=== PATIENT | male | born 1980 | race Caucasian/White ===

== ENCOUNTER → 2023-09-09 11:50 | Outpatient (REF) | payer BC, SELFPAY | LOC: HWRAD 11:50 | PROVIDERS: ATTENDING PHYSICIAN Physician Assistant; FAMILY PHYSICIAN Family Medicine | DX: G43.109 Migraine with aura, not intractable, without status migrainosus (principal); G44.52 New daily persistent headache (NDPH); R10.30 Lower abdominal pain, unspecified; R19.7 Diarrhea, unspecified; K92.1 Melena | CPT/HCPCS: 70450; 74177; Q9967 ==

== ENCOUNTER 2023-10-13 15:06 | Emergency (ER) | payer BC, SELFPAY ==
[2023-10-13 15:11] VITALS: BP 149/96
[2023-10-13 15:55] LABS: % Basophils 0.9 % (0-2); % Eosinophils 0.7 % (0-6); % Immature Granulocytes 0.4 % (0-0.5); % Lymphocytes 32.3 % (20.5-51.1); % Monocytes 10.2 % (1.7-9.3); % Neutrophils 55.5 % (42.2-75.2); Absolute Basophils 0.1 10^3/uL (0-0.2); Absolute Lymphocytes 1.8 10^3/uL (1.2-3.4); Absolute Monocytes 0.6 10^3/uL (0.1-0.6); Absolute Neutrophils 3.1 10^3/uL (1.4-6.5); Hematocrit 48.2 % (39.0-52.0); Hemoglobin 16.6 g/dL (13.0-18.0); Mean Corp Hgb Conc. 34.4 g/dL (33.0-37.0); Mean Corpuscular Hgb 29.6 pg (27.0-31.0); Mean Corpuscular Volume 85.9 fL (80.0-94.0); Mean Platelet Volume 9.4 fL (7.4-10.4); Nucleated Red Blood Cells % 0 % (-); Platelet Count 238 10^3/uL (130-400); Red Blood Cell Count 5.61 10^6/uL (4.70-6.10); White Blood Cell Count 5.6 10^3/uL (4.8-10.8)
[2023-10-13 16:07] LABS: Albumin 4.8 g/dl (3.5-5.0); Carbon Dioxide 29 mmol/L (22-30)
[2023-10-13 16:08] LABS: ALT (SGPT) 43 U/L (0-50); AST (SGOT) 32 U/L (17-59); Alkaline Phosphatase 118 U/L (38-126); Blood Urea Nitrogen 12 mg/dl (9-20); Chloride 103 mmol/L (98-107); Glucose 90 mg/dl (70-99); Potassium 4.4 mmol/L (3.5-5.1); Sodium 140 mmol/L (135-145); Total Bilirubin 1.1 mg/dl (0.2-1.3); Total Protein 7.8 g/dl (6.3-8.2); eGFR > 60.00
[2023-10-13 16:20] LABS: Troponin I < 0.012 ng/ml
[2023-10-13 17:54] VITALS: BP 120/75
[2023-10-13 18:00] VITALS: BP 119/85
--- NOTE | 2023-10-13 18:30 | ED.GENMED ---
History of Present Illness
General
Chief Complaint: Chest Pain
Source: patient
Exam Limitations: none
Time Seen by Provider: 10/13/23 18:09
Travel History
Have you had any contact with someone who has COVID-19?: No
Do you have any symptoms of coronavirus? Fever > 100 degrees, chills, cough, shortness of breath, sore throat, loss of taste or smell, muscle aches, or headache?: No
History of Present Illness
History of Present Illness:
43-year-old otherwise healthy male presents complaining of 2 days worth of pressure in the center of his chest that is made worse with deep breathing. Does not radiate to his back. He denies associated fever or cough. He states he does have a
history of pneumonia that feels similar. He feels fatigued overall. No nausea vomiting. He does travel back and forth to [place] semiregularly. No leg swelling or calf pain. No other complaints at this time
Past History
Past History
ED Past Medical History: Other (kidney stones, migraines, kidney stones)
ED Past Surgical History: Other (urology)
Social History
Tobacco: Non-smoker
Personal:
Living: with family
Phy Exam
Physical Exam
Physical Exam:
General: Well-appearing male no acute respiratory distress
HEENT: Normocephalic atraumatic
Heart: Regular rate and rhythm no murmurs
Lungs: Clear no wheeze or rales
Extremities: No cyanosis or edema
Scores
Heart Score for Chest Pain Patients
STEMI patient?: No
History: Slightly or Non-Suspicious
ECG: Normal
Age: </= 45 years
Risk Factors: No Risk Factors
Troponin: </= Normal Limit
Heart Score for Chest Pain Patients: 0
Heart Score Risk: 2.5% MACE over next 6 weeks
Course
Orders/Labs/Results
Orders:
Orders
10/13/23 15:07
EKG [Electrocardiogram (*1)] Urgent
Reason for Study: Chest Pain
10/13/23 15:08
EKG- Treatment ONCE
10/13/23 15:46
Complete Blood Count/With Diff Urgent
Comprehensive Metabolic Panel Urgent
Troponin I Urgent
10/13/23 18:35
D-Dimer Urgent
10/13/23 19:28
CR Chest - 2 Views Urgent
Comment:
Reason For Exam: chest pain
Abnormal Lab Results
10/13/23
15:46
Monocytes % 10.2 H %
(1.7-9.3)
10/13/23 15:46
10/13/23 15:46
Vital Signs
Initial and Last Documented VS:
Initial Vital Signs
Temp Pulse Resp BP Pulse Ox
98.1 F 73 18 149/96 98
10/13/23 15:11 10/13/23 15:11 10/13/23 15:11 10/13/23 15:11 10/13/23 15:11
Last Documented Vital Signs
Temp Pulse Resp BP Pulse Ox
98.1 F 64 18 122/86 98
10/13/23 15:11 10/13/23 21:15 10/13/23 21:15 10/13/23 21:15 10/13/23 21:15
MDM/Problems Addressed
Differential Diagnosis Includes:
Chest pressure pleuritic in nature. Consider chest wall strain versus PE versus ACS
EKG and troponin done through triage both normal. D-dimer pending. Imaging pending D-dimer result
*Critical Care Note
Total Time (30-74mins, 75-104mins- exclusive of procedures): Not Applicable
Update Note
Update Note:
Troponin and D-dimer both undetectable. Do not suspect PE or dissection. Chest x-ray clear. Suspect possible chest wall discomfort or underlying viral illness. No indication for any further intervention. Stable for discharge and follow-up
ED Attending Note
-
Portions of this chart may have been created with voice recognition software.� Occasional wrong word or��sound alike� substitutions may have occurred due to the inherent limitations of voice recognition software.
Discharge Plan
Departure
Patient Disposition: Home (Routine Discharge)
Date of Disposition: 10/13/23
Time of Disposition: 21:22
Patient with high blood pressure during this ER visit?: No
Discharge Problem:
Chest pain
Instructions: Chest Pain PCP Follow Up
Prescriptions:
No Action
multivitamin [Multi-Day] 1 EACH tablet
1 ea PO DAILY
nortriptyline 25 MG capsule
25 mg PO DAILY
eletriptan [Relpax] 20 MG tablet
20 mg PO PRN PRN (Reason: migraine)
levofloxacin [Levaquin] 750 MG tablet
750 mg PO DAILY Qty: 5 0RF
Referrals:
Nicolas Murphy, DO [Family Provider] -
Activity Restrictions/Additional Instructions:
Please return here for worsening symptoms otherwise follow-up with your family doctor
Interventions
Interventions:
*Risk Screen - Suicide Last Done: 10/13/23 18:46
*General Assessment Last Done: 10/13/23 18:46
*Neglect/Abuse Screening Last Done: 10/13/23 18:46
ED- Cardiac Assessment Last Done: 10/13/23 18:47
Discharge Date and Time
Print Language: [place]
[2023-10-13 18:36] VITALS: BMI 27.4
[2023-10-13 18:58] LABS: D-Dimer < 0.27 ug/mlFEU (0.00-0.50)
[2023-10-13 19:00] VITALS: BP 119/80
[2023-10-13 21:15] VITALS: BP 122/86
== END 2023-10-13 21:31 | disposition home or self-care (01) ==
LOC: EMR 15:06
PROVIDERS: Physician Assistant; EMERGENCY PHYSICIAN Emergency Medicine; FAMILY PHYSICIAN Family Medicine
DX: R07.89 Other chest pain (principal); R53.83 Other fatigue; Z87.01 Personal history of pneumonia (recurrent); Z87.442 Personal history of urinary calculi
CPT/HCPCS: 99283; 71046; 80053; 84484; 85025; 85379; 93005

== ENCOUNTER → 2023-10-27 09:43 | Outpatient (REF) | payer BC, SELFPAY | LOC: RCS 09:43 | PROVIDERS: ATTENDING PHYSICIAN Physician Assistant; FAMILY PHYSICIAN Family Medicine | DX: R07.9 Chest pain, unspecified (principal) | CPT/HCPCS: 93017 ==

== ENCOUNTER 2024-07-04 21:14 | Emergency (ER) | payer BC, SELFPAY ==
[2024-07-04 21:17] VITALS: BP 139/91
[2024-07-04 21:40] LABS: % Basophils 0.4 % (0-2); % Immature Granulocytes 0.2 % (0-0.5); % Lymphocytes 9.5 % (20.5-51.1); % Monocytes 18.6 % (1.7-9.3); % Neutrophils 71.3 % (42.2-75.2); Absolute Lymphocytes 0.5 10^3/uL (1.2-3.4); Absolute Monocytes 0.9 10^3/uL (0.1-0.6); Absolute Neutrophils 3.4 10^3/uL (1.4-6.5); Hematocrit 45.6 % (39.0-52.0); Hemoglobin 15.5 g/dL (13.0-18.0); Mean Corpuscular Hgb 29.8 pg (27.0-31.0); Mean Corpuscular Volume 87.5 fL (80.0-94.0); Mean Platelet Volume 9.1 fL (7.4-10.4); Nucleated Red Blood Cells % 0 % (-); Platelet Count 199 10^3/uL (130-400); Red Blood Cell Count 5.21 10^6/uL (4.70-6.10); Red Cell Dist. Width 12.2 % (11.5-14.5); White Blood Cell Count 4.7 10^3/uL (4.8-10.8)
[2024-07-04 21:51] LABS: ALT (SGPT) 84 U/L (0-50); AST (SGOT) 54 U/L (17-59); Albumin 4.3 g/dl (3.5-5.0); Alkaline Phosphatase 132 U/L (38-126); Blood Urea Nitrogen 11 mg/dl (9-20); Carbon Dioxide 26 mmol/L (22-30); Chloride 100 mmol/L (98-107); Glucose 113 mg/dl (70-99); Potassium 3.9 mmol/L (3.5-5.1); Sodium 133 mmol/L (135-145); Total Protein 7.1 g/dl (6.3-8.2); eGFR > 60.00
[2024-07-04 21:54] LABS: COVID-19 Antigen Negative (Negative)
[2024-07-04 23:51] VITALS: BP 138/89
--- NOTE | 2024-07-05 00:38 | ED.GENMED ---
History of Present Illness
General
Chief Complaint: Cold/Flu/URI Symptoms
Time Seen by Provider: 07/04/24 23:46
History of Present Illness
History of Present Illness:
44-year-old male without significant past medical history presenting for fever, body aches, cough. Reports his symptoms since yesterday. He has been taking Tylenol and Motrin for his symptoms as well as other OTC medications. Does report sick
contacts. Denies chest pain. He was concerned because his fever was very elevated. Denies abdominal pain, vomiting, GI symptoms. Denies additional acute medical complaints
Past History
Past History
ED Past Medical History: Other (kidney stones, migraines, kidney stones)
ED Past Surgical History: Other (urology)
Social History
Tobacco: Non-smoker
Personal:
Living: with family
Phy Exam
Physical Exam
Physical Exam:
General: Well-appearing, no clinical signs of dehydration, nontoxic and in no acute distress
HEENT: protecting airway
Neck: appears supple
CV: Normal heart rate, regular rhythm
Resp: No accessory muscle use, no increased work of breathing, lungs clear to auscultation bilaterally
Abd: no distension
Extremities: No deformities, no swelling, no erythema
Neuro: alert, no focal neurologic deficit
: deferred
Rectal: deferred
Psych: Normal affect
Skin: Intact
Course
Orders/Labs/Results
Orders:
Orders
07/04/24 21:27
COVID-19 Antigen Urgent
Source: Nasal Swab
Complete Blood Count/With Diff Urgent
Comprehensive Metabolic Panel Urgent
INF RAPID [Influenza A+B Rapid Molecular] Urgent
GILMA Source: Nasal Swab
Specimen Description:
07/05/24 00:37
Ketorolac [Toradol] 30 mg IM NOW STA
Abnormal Lab Results
07/04/24
21:27
WBC 4.7 L 10^3/uL
(4.8-10.8)
Absolute Lymphs (auto) 0.5 L 10^3/uL
(1.2-3.4)
Absolute Monos (auto) 0.9 H 10^3/uL
(0.1-0.6)
Lymphocytes % 9.5 L %
(20.5-51.1)
Monocytes % 18.6 H %
(1.7-9.3)
Sodium 133 L mmol/L
(135-145)
Glucose 113 H mg/dl
(70-99)
ALT 84 H U/L
(0-50)
Alkaline Phosphatase 132 H U/L
(38-126)
07/04/24 21:27
07/04/24 21:27
Vital Signs
Initial and Last Documented VS:
Initial Vital Signs
Temp Pulse Resp BP Pulse Ox
99.2 F 110 16 139/91 96
07/04/24 21:17 07/04/24 21:17 07/04/24 21:17 07/04/24 21:17 07/04/24 21:17
Last Documented Vital Signs
Temp Pulse Resp BP Pulse Ox
99.4 F 106 20 138/89 99
07/04/24 23:51 07/04/24 23:51 07/04/24 23:51 07/04/24 23:51 07/04/24 23:51
MDM/Problems Addressed
MDM/Problems Addressed:
44-year-old male presenting to the emergency department for fever, cough, body aches. Vital signs significant for tachycardia and low-grade fever.
On exam patient is resting comfortably, no distress or discomfort. Benign cardiac and pulmonary exam, active dry cough. Patient in no acute respiratory distress. Patient had screening laboratory analysis prior to my assessment and viral swabs.
Labs unremarkable and patient is positive for the flu, consistent with his symptoms. Conversation had regarding Tamiflu, patient declined. Toradol administered for his discomfort. At this time feel that he is stable for discharge with continued
outpatient supportive therapy. Return precautions discussed and patient verbalized understanding
*Critical Care Note
Total Time (30-74mins, 75-104mins- exclusive of procedures): Not Applicable
ED Attending Note
-
Portions of this chart may have been created with voice recognition software.� Occasional wrong word or��sound alike� substitutions may have occurred due to the inherent limitations of voice recognition software.
Discharge Plan
Departure
Prescriptions:
No Action
multivitamin [Multi-Day] 1 EACH tablet
1 ea PO DAILY
nortriptyline 25 MG capsule
25 mg PO DAILY
eletriptan [Relpax] 20 MG tablet
20 mg PO PRN PRN (Reason: migraine)
levofloxacin [Levaquin] 750 MG tablet
750 mg PO DAILY Qty: 5 0RF
Referrals:
Nicolas Murphy, DO [Family Provider] -
Interventions
Interventions:
*Risk Screen - Suicide Last Done: 07/04/24 21:17
*General Assessment Last Done: 07/04/24 21:17
*Neglect/Abuse Screening Last Done: 07/04/24 21:17
*ED COVID-19 Vaccine History Last Done: 07/04/24 21:17
ED- Pulmonary Assessment Last Done: 07/04/24 23:51
Discharge Date and Time
Print Language: ITALIAN
[2024-07-05] MEDS: TORADOL 30 MG IM (00:49)
== END 2024-07-05 00:59 | disposition home or self-care (01) ==
LOC: EMR 21:14
PROVIDERS: Emergency Medicine; EMERGENCY PHYSICIAN Student in an Organized Health Care Education/Training Program; FAMILY PHYSICIAN Family Medicine
DX: J10.1 Influenza due to other identified influenza virus with other respiratory manifestations (principal)
CPT/HCPCS: 99284; 96372; 80053; 85025; 87502; 87811

== ENCOUNTER → 2025-02-17 07:36 | Outpatient (REF) | payer BC, SELFPAY | LOC: HWRAD 07:36 | PROVIDERS: ATTENDING PHYSICIAN Physician Assistant Medical; FAMILY PHYSICIAN Family Medicine | DX: R74.8 Abnormal levels of other serum enzymes (principal); Z80.0 Family history of malignant neoplasm of digestive organs | CPT/HCPCS: 76700 ==

== ENCOUNTER → 2025-04-21 10:18 | Outpatient (REF) | payer BC, SELFPAY | LOC: RAD 10:18 | PROVIDERS: ATTENDING PHYSICIAN Physician Assistant Medical; OTHER PHYSICIAN Internal Medicine | DX: R10.32 Left lower quadrant pain (principal); M25.561 Pain in right knee; M25.562 Pain in left knee; M25.522 Pain in left elbow | CPT/HCPCS: 73080; 73564; 74178; Q9967 ==